=== PATIENT | male | born 1945 | race Caucasian/White ===

== ENCOUNTER → 2016-12-05 | Outpatient (CLI) | payer MEDICARE, OTHER ==
[~2016-12-05] MED LIST: ACIPHEX20 MG PO; ALLOPURINOL300 MG PO; BACLOFEN10 MG PO; BENAZEPRIL; BENAZEPRIL PO; CENTRUM SILVER1 TA1 PO; COLCHICINE0.6 MG PO; COUMADIN 6MG6 MG/TAB PO; COUMADIN PO; CRESTOR5 MG PO; CYMBALTA 20MG20 MG PO; DILAUDID 2MG TAB2 MG PO; FLEXERIL; FLEXERIL 1010 MG/TAB PO; GINSENG PO; HYDROCODONE/APAP; INDOMETHACIN25 MG PO; LYRICA150 MG PO; LYRICA75 MG PO; MAG-OX 400400 MG/TAB PO; METHOCARBAMOL750 MG PO; MIDRIN; NAPROXEN EC500 MG PO; NEURONTIN300 MG PO; NEXIUM40 MG PO; NORCO 325 MG-101 TAB; PERCOCET 325 MG1 TA2 PO; PERCR 7.5; ROBAXIN 75750 MG/TAB PO; TERAZOSIN5 MG PO; TRAMADOL50 MG PO; ULTRAM50 MG PO; VALIUM 5MG T5 MG/TAB PO; VITAMIN D3400 IU PO; ZOCOR 20MG20 MG PO; [UNRECOGNIZED DRUG - OTHER]
== END ==
LOC: COL.RAD 08:10
DX: I67.82 Cerebral ischemia (principal); G31.9 Degenerative disease of nervous system, unspecified; R43.2 Parageusia; R63.4 Abnormal weight loss
CPT/HCPCS: Q9967

== ENCOUNTER → 2018-07-27 | Outpatient (CLI) | payer MEDICARE, OTHER | LOC: COL.RAD 09:26 | DX: Z01.818 Encounter for other preprocedural examination (principal); M54.32 Sciatica, left side; M48.07 Spinal stenosis, lumbosacral region; Z98.1 Arthrodesis status ==

== ENCOUNTER 2018-09-21 09:14 | Emergency (ER) | payer MEDICARE, OTHER ==
[~2018-09-21] VITALS: Ht 167.6 cm; Wt 69.1 kg
[~2018-09-21 09:14] MED LIST changes: -BENAZEPRIL PO; +COUMADIN 1MG1 MG/TAB PO; -COUMADIN PO; +HYTRIN 5MG C5 MG/CAP PO; +LOTENSIN20 MG PO; -TERAZOSIN5 MG PO; -VITAMIN D3400 IU PO; +VITAMIND3 5000 PO; +ZYLOPRIM 300MG300 MG PO
[2018-09-21 09:17] VITALS: TEMP 98.9
[2018-09-21 09:48] LABS: INR 1.7 (0.8-3.0); PROTHROMBIN TIME 19.2 SECONDS (9.7-12.8)
[2018-09-21 09:49] LABS: BASO % 0.3 % (0.0-2.0); EOS # 0.1 (0.0-0.7); EOS % 0.9 % (0-4.0); GRAN # 5.7 (1.4-6.5); GRAN % 75.1 % (42.2-75.2); HEMATOCRIT 39.2 % (42.0-52.0); HEMOGLOBIN 12.5 g/dl (13.5-18.0); LYMPH # 1.4 (1.2-3.4); LYMPH % 18.7 % (20.0-51.0); MEAN CELL VOLUME 97 fl (80.0-100.0); MEAN CORPUSCULAR HEMOGLOBIN 31 pg (27.0-31.0); MEAN CORPUSCULAR HGB CONC 32 g/dl (33.0-37.0); MEAN PLATELET VOLUME 10.7 fl (7.4-10.4); MONO # 0.3 (0.1-0.6); MONO % 4.3 % (1.7-9.3); PLATELET COUNT 196 K/mm3 (130-400); RED BLOOD COUNT 4.04 M/mm3 (4.20-5.60); REDCELL DISTRIBUTION WIDTH-CV 14.2 % (11.5-14.5)
[2018-09-21 09:50] LABS: PARTIAL THROMBOPLASTIN TIME 35.2 SECONDS (26.0-37.0)
[2018-09-21] MEDS ORDERED: MEN'S MULTIVIT1 EAC1 PO (09:50)
[2018-09-21] MEDS ORDERED: ZANAFLEX CAPSULE4 MG PO (09:53)
[2018-09-21] MEDS ORDERED: VOLTAREN GEL 1%1 TU TP (09:54)
[2018-09-21] MEDS ORDERED: ZOCOR 20MG20 MG PO (09:54)
[2018-09-21] MEDS ORDERED: TYLENOL 8 HR PO (09:55)
[2018-09-21 09:58] LABS: ALANINE AMINOTRANSFERASE < 6 U/L (21-72); ALBUMIN 4.2 gm/dL (3.5-5.0); ALKALINE PHOSPHATASE 83 U/L (50-136); ANION GAP 10 mmol/L (7-16); AST,SGOT 26 U/L (15-37); BILIRUBIN,TOTAL 0.4 mg/dL (0.0-1.0); BLOOD UREA NITROGEN 46 mg/dL (9-20); C-REACTIVE PROTEIN 2.3 mg/dL (0.0-0.9); CALCIUM 10.2 mg/dL (8.4-10.2); CARBON DIOXIDE 21 mmol/L (22-30); CHLORIDE 111 mmol/L (98-107); CREATININE, serum 1.81 (0.66-1.25); GLUCOSE 140 mg/dL (74-106); LIPASE 61 U/L (23-300); SODIUM 141 mmol/L (137-145); TOTAL PROTEIN 7.8 gm/dL (6.4-8.2)
[2018-09-21 10:31] LABS: COLLECTION METHOD CLEAN CATCH
[2018-09-21 10:44] LABS: MUCOUS Present /lpf; PH 5 (5-8); SQUAMOUS EPITHELIAL 0-2 /hpf; URINE APPEARANCE Clear; URINE BACTERIA None Seen /hpf; URINE BILIRUBIN Negative (NEGATIVE); URINE BLOOD Negative (NEGATIVE); URINE COLOR Yellow; URINE GLUCOSE Negative (NEGATIVE); URINE KETONE Negative (NEGATIVE); URINE LEUKOCYTE ESTERASE 1+ (NEGATIVE); URINE NITRATE Negative (NEGATIVE); URINE PROTEIN(semi-quant) 2+ (NEGATIVE); URINE RBC 0-2 /hpf; URINE UROBILINOGEN Negative (NEGATIVE)
[2018-09-21] MEDS ORDERED: NORCO 325 MG-51 TAB PO (11:04)
[2018-09-21 11:19] VITALS: BP 154/83; PULSE 79
== END 2018-09-21 11:21 | disposition home or self-care (01) ==
LOC: COL.ER 09:14
PROVIDERS: Emergency Medicine
DX: K40.90 Unilateral inguinal hernia, without obstruction or gangrene, not specified as recurrent (principal); I10 Essential (primary) hypertension; Z79.01 Long term (current) use of anticoagulants; Z87.442 Personal history of urinary calculi
CPT/HCPCS: J1170; J7030

== ENCOUNTER 2018-10-06 10:22 | Day surgery (SDC) | payer MEDICARE, OTHER ==
[~2018-10-06] VITALS: Ht 167.6 cm; Wt 68.2 kg
[~2018-10-06 10:22] MED LIST changes: +MEN'S MULTIVIT1 EAC1 PO; +NORCO 325 MG-51 TAB PO; +TYLENOL 8 HR PO; +VOLTAREN GEL 1%1 TU TP; +ZANAFLEX CAPSULE4 MG PO
[2018-10-06 10:40] VITALS: BP 138/85; PULSE 84; TEMP 98.1
[2018-10-06 11:15] LABS: PROTHROMBIN TIME 10.8 SECONDS (9.7-12.8)
[2018-10-06 11:20] LABS: CALCIUM 10.3 mg/dL (8.4-10.2); CREATININE, serum 1.63 (0.66-1.25); POTASSIUM 4.7 mmol/L (3.4-5.0)
[2018-10-06 15:40] VITALS: BP 125/66; PULSE 83; TEMP 97.3
--- NOTE | 2018-10-06 15:40 | NUR ---
Patient returned back to [facility]. Alert and oriented. Vital signs obtained, WNL. States his pain is 3/10 to lower abdomen. States he is not ready to eat or drink but would like water and crackers in the room for when hes ready. Denies any nausea at this time. 4 incisions to abdomen, gonzalez set intact. Call wu within reach, Jasmina at bedside. Will continue to monitor.
[2018-10-06 15:55] VITALS: BP 132/69; PULSE 76
--- NOTE | 2018-10-06 15:55 | NUR ---
Patient states he is feeling well. Vital signs stable. Pain has decreased to 2/10 to lower abdomen. States he would like a jello. Tolerating food and drink well. Will continue to monitor.
[2018-10-06 16:10] VITALS: BP 150/75; PULSE 87
--- NOTE | 2018-10-06 16:10 | NUR ---
Patient states he is feeling well and would like more jello. Vital signs stable. Will continue to monitor.
[2018-10-06 16:25] VITALS: BP 133/73; PULSE 82
--- NOTE | 2018-10-06 16:25 | NUR ---
Vital signs stable. Patient states that he is feeling well. Tolerating food and drink well. Will continue to monitor.
[2018-10-06 16:55] VITALS: BP 130/63; PULSE 78
--- NOTE | 2018-10-06 16:55 | NUR ---
Patient states he is feeling well to go home. Ambulated to bathroom, steady. Spontaneous void obtained. Will continue to monitor.
--- NOTE | 2018-10-06 17:10 | NUR ---
Patient discharge instructions reviewed with patient and . Verbalized understanding. Reviewed importance of resuming coumadin not for another 48 hours. Pain medication script handed, as well as follow up appointment card. IV removed per orders. Patient to get dressed at this time.
--- NOTE | 2018-10-06 17:35 | NUR ---
Patient brought down to lobby via wheel chair. To be driven home by son.
== END 2018-10-06 17:35 | disposition home or self-care (01) ==
LOC: SDCO 10:22
PROVIDERS: Registered Nurse
DX: K40.90 Unilateral inguinal hernia, without obstruction or gangrene, not specified as recurrent (principal); K42.9 Umbilical hernia without obstruction or gangrene; E78.00 Pure hypercholesterolemia, unspecified; G47.33 Obstructive sleep apnea (adult) (pediatric); K21.9 Gastro-esophageal reflux disease without esophagitis; M19.90 Unspecified osteoarthritis, unspecified site; F41.9 Anxiety disorder, unspecified; I12.9 Hypertensive chronic kidney disease with stage 1 through stage 4 chronic kidney disease, or unspecified chronic kidney disease; N18.3 Chronic kidney disease, stage 3 (moderate); G89.29 Other chronic pain; M10.9 Gout, unspecified; Z79.01 Long term (current) use of anticoagulants; Z80.0 Family history of malignant neoplasm of digestive organs; Z82.3 Family history of stroke; Z79.82 Long term (current) use of aspirin; Z88.8 Allergy status to other drugs, medicaments and biological substances
CPT/HCPCS: C1781; J1100; J1170; J2405; J2704; J3010; J7030

== ENCOUNTER 2018-12-03 15:08 | Emergency (ER) | payer MEDICARE, OTHER ==
[~2018-12-03] VITALS: Ht 165.1 cm; Wt 68.2 kg
[2018-12-03 15:14] VITALS: BP 182/97; TEMP 98.8
[2018-12-03] MEDS ORDERED: LYRICA 75MG CAP75 MG PO (15:53)
[2018-12-03] MEDS ORDERED: MEDROL 4MG DOSPA4 MG PO (15:53)
[2018-12-03 16:30] VITALS: PULSE 70
== END 2018-12-03 16:30 | disposition home or self-care (01) ==
LOC: COL.ER 15:08
DX: M79.2 Neuralgia and neuritis, unspecified (principal); M54.5 Low back pain; G89.29 Other chronic pain; M10.9 Gout, unspecified; I10 Essential (primary) hypertension; E78.5 Hyperlipidemia, unspecified; Z79.01 Long term (current) use of anticoagulants; Z98.890 Other specified postprocedural states
CPT/HCPCS: J7512

== ENCOUNTER 2018-12-11 17:46 | Emergency (ER) | payer MEDICARE, OTHER ==
[~2018-12-11] VITALS: Ht 165.1 cm; Wt 68.2 kg
[~2018-12-11 17:46] MED LIST changes: +LYRICA 75MG CAP75 MG PO; +MEDROL 4MG DOSPA4 MG PO
[2018-12-11 17:47] VITALS: TEMP 98.2
[2018-12-11 18:45] LABS: COLLECTION METHOD CLEAN CATCH
[2018-12-11 18:56] LABS: HEMOGLOBIN 10.9 g/dl (13.5-18.0); MEAN CELL VOLUME 95 fl (80.0-100.0); MEAN CORPUSCULAR HEMOGLOBIN 32 pg (27.0-31.0); MEAN CORPUSCULAR HGB CONC 34 g/dl (33.0-37.0); PLATELET COUNT 173 K/mm3 (130-400); RED BLOOD COUNT 3.43 M/mm3 (4.20-5.60); REDCELL DISTRIBUTION WIDTH-CV 13.8 % (11.5-14.5)
[2018-12-11 18:57] LABS: MUCOUS Present /lpf; PH 5 (5-8); SQUAMOUS EPITHELIAL 0-2 /hpf; URINE APPEARANCE Hazy; URINE BACTERIA None Seen /hpf; URINE BILIRUBIN Negative (NEGATIVE); URINE BLOOD Negative (NEGATIVE); URINE COLOR Yellow; URINE GLUCOSE Negative (NEGATIVE); URINE KETONE Negative (NEGATIVE); URINE LEUKOCYTE ESTERASE 1+ (NEGATIVE); URINE NITRATE Negative (NEGATIVE); URINE PROTEIN(semi-quant) 2+ (NEGATIVE); URINE RBC 0-2 /hpf; URINE UROBILINOGEN Negative (NEGATIVE)
[2018-12-11 19:04] LABS: HEMATOCRIT 32.4 % (42.0-52.0)
[2018-12-11 19:12] LABS: ALANINE AMINOTRANSFERASE 18 U/L (21-72); ALBUMIN 4.1 gm/dL (3.5-5.0); ALKALINE PHOSPHATASE 78 U/L (50-136); ANION GAP 11 mmol/L (7-16); AST,SGOT 25 U/L (15-37); BILIRUBIN,TOTAL 0.6 mg/dL (0.0-1.0); BLOOD UREA NITROGEN 37 mg/dL (9-20); CARBON DIOXIDE 22 mmol/L (22-30); CHLORIDE 108 mmol/L (98-107); CREATININE, serum 1.33 (0.66-1.25); GLUCOSE 163 mg/dL (74-106); POTASSIUM 4.7 mmol/L (3.4-5.0); SODIUM 141 mmol/L (137-145)
[2018-12-11 19:35] LABS: C-REACTIVE PROTEIN < 0.5 mg/dL (0.0-0.9)
[2018-12-11 19:47] LABS: INR 2.9 (0.8-3.0); PROTHROMBIN TIME 35.1 SECONDS (9.7-12.8)
[2018-12-11 19:56] LABS: LYMPHOCYTE 5 % (20.0-51.0); NEUTROPHILS 93 % (42.0-75.2)
[2018-12-11 19:57] LABS: PLATELET ESTIMATE NORMAL (NORMAL)
[2018-12-11 22:58] VITALS: BP 175/97; PULSE 75
== END 2018-12-11 23:00 | disposition short-term general hospital (02) ==
LOC: COL.ER 17:46
PROVIDERS: Emergency Medicine
DX: L76.32 Postprocedural hematoma of skin and subcutaneous tissue following other procedure (principal); E78.00 Pure hypercholesterolemia, unspecified; Z79.01 Long term (current) use of anticoagulants
CPT/HCPCS: J2060; J3010; J7030; Q9967

== ENCOUNTER → 2018-12-16 | Outpatient (CLI) | payer MEDICARE, OTHER ==
[2018-12-16 08:56] LABS: BASO % 0.1 % (0.0-2.0); EOS % 0.3 % (0-4.0); GRAN # 8.1 (1.4-6.5); GRAN % 83.2 % (42.2-75.2); LYMPH % 9.7 % (20.0-51.0); MEAN CELL VOLUME 98 fl (80.0-100.0); MEAN CORPUSCULAR HGB CONC 32 g/dl (33.0-37.0); MEAN PLATELET VOLUME 10.9 fl (7.4-10.4); MONO # 0.6 (0.1-0.6); MONO % 5.9 % (1.7-9.3); PLATELET COUNT 158 K/mm3 (130-400); RED BLOOD COUNT 2.65 M/mm3 (4.20-5.60); REDCELL DISTRIBUTION WIDTH-CV 15.8 % (11.5-14.5)
[2018-12-16 09:00] LABS: HEMOGLOBIN 8.2 g/dl (13.5-18.0); MEAN CORPUSCULAR HEMOGLOBIN 31 pg (27.0-31.0)
== END ==
LOC: COL.LAB 08:17
DX: D62 Acute posthemorrhagic anemia (principal)

== ENCOUNTER → 2019-05-05 | Outpatient (CLI) | payer MEDICARE, OTHER ==
[2019-05-05 10:41] LABS: BASO % 0.4 % (0.0-2.0); EOS # 0.1 (0.0-0.7); EOS % 1.2 % (0-4.0); GRAN # 3.5 (1.4-6.5); GRAN % 69.1 % (42.2-75.2); HEMOGLOBIN 11.7 g/dl (13.5-18.0); LYMPH # 1.1 (1.2-3.4); LYMPH % 21.8 % (20.0-51.0); MEAN CELL VOLUME 97 fl (80.0-100.0); MEAN CORPUSCULAR HEMOGLOBIN 31 pg (27.0-31.0); MEAN CORPUSCULAR HGB CONC 32 g/dl (33.0-37.0); MEAN PLATELET VOLUME 11.2 fl (7.4-10.4); MONO # 0.4 (0.1-0.6); MONO % 7.1 % (1.7-9.3); PLATELET COUNT 163 K/mm3 (130-400); REDCELL DISTRIBUTION WIDTH-CV 13.7 % (11.5-14.5)
== END ==
LOC: COL.LAB 10:04
PROVIDERS: Family Medicine
DX: D64.9 Anemia, unspecified (principal)

== ENCOUNTER → 2020-12-11 | Outpatient (CLI) | payer MEDICARE, OTHER | LOC: COL.LAB 08:19 | DX: R35.1 Nocturia (principal) ==

== ENCOUNTER 2021-12-11 21:53 | Inpatient (IN) | payer MEDICARE, OTHER ==
[~2021-12-11] VITALS: Ht 167.6 cm; Wt 63.9 kg
[2021-12-11 22:35] LABS: MEAN CELL VOLUME 98 fl (80.0-100.0); MEAN CORPUSCULAR HGB CONC 32 g/dl (33.0-37.0); MEAN PLATELET VOLUME 10.9 fl (7.4-10.4); PLATELET COUNT 165 K/mm3 (130-400); RED BLOOD COUNT 2.75 M/mm3 (4.20-5.60); REDCELL DISTRIBUTION WIDTH-CV 13.7 % (11.5-14.5)
[2021-12-11 22:37] LABS: HEMATOCRIT 26.9 % (42.0-52.0); HEMOGLOBIN 8.5 g/dl (13.5-18.0); MEAN CORPUSCULAR HEMOGLOBIN 31 pg (27-31)
[2021-12-11 22:58] LABS: ALBUMIN 3.9 gm/dL (3.4-4.8); BILIRUBIN,TOTAL 0.2 mg/dL (0.2-1.2); CALCIUM 9.6 mg/dL (8.4-10.2); CREATININE, serum 3.07 mg/dL (0.72-1.25); TOTAL PROTEIN 6.9 gm/dL (6.2-8.1)
[2021-12-11 23:00] LABS: POTASSIUM 6.3 mmol/L (3.5-4.5)
[2021-12-11 23:05] LABS: BAND 5 % (0-10); HYPOCHROMIA 1+; LYMPHOCYTE 4 % (20.0-51.0); NEUTROPHILS 87 % (42.0-75.2); PLATELET ESTIMATE NORMAL (NORMAL)
[2021-12-11 23:06] LABS: SCHISTOCYTES 1+
[2021-12-11 23:36] LABS: INR 2.5 (0.8-3.0); PROTHROMBIN TIME 28.6 SECONDS (9.7-12.8)
[2021-12-11 23:39] LABS: PARTIAL THROMBOPLASTIN TIME 39.3 SECONDS (26.0-37.0)
[2021-12-12] VITALS (11 sets, daily range): BP systolic 134–173; BP diastolic 63–85; PULSE 73–92; TEMP 98.7–99.2
[2021-12-12 00:32] LABS: COLLECTION METHOD CLEAN CATCH
[2021-12-12 00:38] LABS: MUCOUS Present (NOT PRESENT); PH 5 (5-8); SQUAMOUS EPITHELIAL 0-2 /hpf (0-10); URINE APPEARANCE Hazy (CLEAR/HAZY); URINE BACTERIA None Seen /hpf (NONE SEEN); URINE BLOOD 2+ (NEGATIVE); URINE COLOR Yellow (YELLOW); URINE GLUCOSE 1+ (NEGATIVE); URINE KETONE Negative (NEGATIVE); URINE NITRATE Negative (NEGATIVE); URINE PROTEIN(semi-quant) 2+ (NEGATIVE); URINE RBC 20-50 /hpf (0-2); URINE UROBILINOGEN Negative (NEGATIVE)
[2021-12-12 03:26] LABS: BASO % 0.1 % (0.0-2.0); GRAN # 6.1 K/mm3 (1.4-6.5); GRAN % 88.6 % (42.2-75.2); LYMPH # 0.4 K/mm3 (1.2-3.4); LYMPH % 5.7 % (20.0-51.0); MEAN CELL VOLUME 99 fl (80.0-100.0); MEAN CORPUSCULAR HGB CONC 31 g/dl (33.0-37.0); MEAN PLATELET VOLUME 9.8 fl (7.4-10.4); MONO # 0.4 K/mm3 (0.1-0.6); MONO % 5.5 % (1.7-9.3); PLATELET COUNT 139 K/mm3 (130-400); RED BLOOD COUNT 2.47 M/mm3 (4.20-5.60); REDCELL DISTRIBUTION WIDTH-CV 13.8 % (11.5-14.5)
[2021-12-12 03:27] LABS: HEMATOCRIT 24.5 % (42.0-52.0); HEMOGLOBIN 7.6 g/dl (13.5-18.0); MEAN CORPUSCULAR HEMOGLOBIN 31 pg (27-31)
--- NOTE | 2021-12-12 03:34 | NUR ---
Pt to room at approximately 0300. Pt oriented to room and admission assessment completed without difficulty. Pt is A&Ox3 and plesant. Pt has fluids running in L AC IV and is resting quietly in bed. Call light within reach, will continue to monitor.
[2021-12-12 03:43] LABS: CALCIUM 9.3 mg/dL (8.4-10.2); MAGNESIUM 1.7 mg/dL (1.6-2.6); POTASSIUM 5.2 mmol/L (3.5-4.5)
[2021-12-12 03:48] LABS: CREATININE, serum 3.23 mg/dL (0.72-1.25)
--- NOTE | 2021-12-12 09:14 | NUR ---
Pain Management Specialist met with patient to discuss discharge planning. Patient lives in [place] with his , Jasmina and sees Mechelle Mcdowell APRN in [place] for primary care as he used to live there for many years. Patient uses [facility] for most of his medications, but if he needs a quick prescription he uses [facility]. Patient does not use any DME and is independent with [facility]. Patient does not have DPOA-HC and is not interested in completing the form at this time. Patient plans to return home at time of discharge. Patient's children, Iraj (ph#[phone]) and Rosy (ph#[phone]) are listed as contacts. Discharge Plan: Home
[2021-12-12 10:44] LABS: INR 2.9 (0.8-3.0); PROTHROMBIN TIME 33.1 SECONDS (9.7-12.8)
--- NOTE | 2021-12-12 11:33 | NUR ---
Kiara: [facility] Situation: Building Carpenter Helper stopped by room on rounds Background: PT was resting Assessment: Pt appreciated the visit Recommendation: Building Carpenter Helper will follow up as needed
--- NOTE | 2021-12-12 13:45 | NUR ---
PT TAKEN TO SURGERY @ THIS TIME, IVF INFUSING. PT'S WALLET IS PLACED IN THE SAFE BY SLOT OPERATIONS DIRECTOR ACE.
--- NOTE | 2021-12-12 17:06 | NUR ---
PT TRANSFERRED TO ROOM 346 FROM [facility] @ THIS TIME R/T BATHROOM NOT FUNCTIONING PROPERLY. PT ARRIVED BACK FROM SURGERY @ 1548, HAS BEEN A&O X3, URINATED X2. URINE IS DARK RED, CLOTS SEEN WHEN STRAINED. PT HAS TO SIT ON TOILET TO URINATE, INSTRUCTED TO USE URINAL FOR MEASUREMENTS, VERBALIZES UNDERSTANDING BUT DOES MISS URINAL X1 ET VOIDS INTO TOILET. PT ASSISTED TO BR ET BACK TO BED WITH 1 ASSIST, IS UNSTEADY ET SHAKY. IVF INFUSING. BED ALARM IS ON FOR SAFETY, CALL LIGHT WITHIN REACH.
--- NOTE | 2021-12-12 19:13 | NUR ---
PT HAS CONTINUED TO HAVE HEMATURIA WITH CLOTS, VOIDS 200-300 ML @ A TIME. BLOOD PRESSURES HAVE BECOME ELEVATED. DR. LAURA CALLED ET UPDATED ON PT STATUS, NO NEW ORDERS @ THIS TIME. REPORT GIVEN TO REBEKA BERG.
--- NOTE | 2021-12-12 20:50 | NUR ---
Pt. sitting up in bed. Pt. is A&OX3, assessment complete. IV to lt. ac patent, IV fluids infusing per orders. Pt. assisted to the bathroom with standby assist. Urine is still bloody. Will monitor. Pt. denies pain or other needs. Call light within reach.
[2021-12-13 00:51] VITALS: BP 145/67; PULSE 85; TEMP 99.5
[2021-12-13 03:28] VITALS: BP 139/69; PULSE 84; TEMP 98
--- NOTE | 2021-12-13 04:52 | NUR ---
Dr. Duran notified of Pt's urine out put and retention. Pt. bladder scanned and retained 250 mls after urinating. Pt. denies pain or feelings of difficulty with urination.
[2021-12-13 07:21] VITALS: BP 151/79; PULSE 79; TEMP 99.1
[2021-12-13 08:50] LABS: MEAN CELL VOLUME 103 fl (80.0-100.0); MEAN CORPUSCULAR HGB CONC 30 g/dl (33.0-37.0); MEAN PLATELET VOLUME 10.8 fl (7.4-10.4); PLATELET COUNT 161 K/mm3 (130-400); RED BLOOD COUNT 2.68 M/mm3 (4.20-5.60); REDCELL DISTRIBUTION WIDTH-CV 14.4 % (11.5-14.5)
[2021-12-13 08:58] LABS: HEMATOCRIT 27.5 % (42.0-52.0); HEMOGLOBIN 8.1 g/dl (13.5-18.0); MEAN CORPUSCULAR HEMOGLOBIN 30 pg (27-31)
[2021-12-13 09:06] LABS: CALCIUM 9.1 mg/dL (8.4-10.2); CREATININE, serum 3.03 mg/dL (0.72-1.25); POTASSIUM 5.4 mmol/L (3.5-4.5)
[2021-12-13 11:19] VITALS: BP 175/85; TEMP 99.1
[2021-12-13 11:39] LABS: BAND 1 % (0-10); LYMPHOCYTE 7 % (20.0-51.0); NEUTROPHILS 90 % (42.0-75.2); OVALOCYTES 2+
[2021-12-13 11:40] LABS: PLATELET ESTIMATE NORMAL (NORMAL); SCHISTOCYTES 1+
--- NOTE | 2021-12-13 14:17 | NUR ---
Kiara: [facility] Situation: Welt Stitcher went to room on rounds Background: PT was resting and content Assessment: No needs at this time and PT appreciated the visit Recommendation: Welt Stitcher will follow up at this time
[2021-12-13 16:00] VITALS: BP 163/79; PULSE 101; TEMP 99.1
--- NOTE | 2021-12-13 19:16 | NUR ---
RECEIVED CHANGE OF SHIFT REPORT FROM DAY SHIFT RN.
[2021-12-13 19:54] VITALS: BP 171/82; PULSE 93; TEMP 99.9
[2021-12-14] VITALS (7 sets, daily range): BP systolic 149–178; BP diastolic 72–91; PULSE 83–101; TEMP 97.7–98.9
--- NOTE | 2021-12-14 01:10 | NUR ---
PATIENT REPORTS THAT BOTH HANDS FEEL TIGHT WITH SWELLING IN THE JOINTS, OBSERVED PSYCHOSOCIAL REHABILITATION COUNSELOR <3, SKIN WARM, MARYJO RADIAL PULSES +2, DENIES INCREASED NUMBNESS/TINGLING TO MARYJO HANDS AT THIS TIME.
--- NOTE | 2021-12-14 01:13 | NUR ---
OBSERVED URINE RED TINGED WITH X2 SMALL CLOTS AT BOTTOM OF URINAL. PATIENT REPORTS HE FEELS LIKE HE IS EMPTYING HIS BLADDER WITH NO PROBLEMS CURRENTLY.
[2021-12-14 06:42] LABS: BASO % 0.1 % (0.0-2.0); GRAN # 9.9 K/mm3 (1.4-6.5); GRAN % 88.5 % (42.2-75.2); LYMPH # 0.5 K/mm3 (1.2-3.4); LYMPH % 4.5 % (20.0-51.0); MEAN CELL VOLUME 101 fl (80.0-100.0); MEAN CORPUSCULAR HGB CONC 30 g/dl (33.0-37.0); MEAN PLATELET VOLUME 11.1 fl (7.4-10.4); MONO # 0.7 K/mm3 (0.1-0.6); MONO % 6.5 % (1.7-9.3); PLATELET COUNT 167 K/mm3 (130-400); RED BLOOD COUNT 2.61 M/mm3 (4.20-5.60); REDCELL DISTRIBUTION WIDTH-CV 14.5 % (11.5-14.5)
[2021-12-14 06:45] LABS: HEMATOCRIT 26.3 % (42.0-52.0); MEAN CORPUSCULAR HEMOGLOBIN 31 pg (27-31)
[2021-12-14 06:51] LABS: CALCIUM 8.9 mg/dL (8.4-10.2); CREATININE, serum 2.8 mg/dL (0.72-1.25); POTASSIUM 4.2 mmol/L (3.5-4.5)
--- NOTE | 2021-12-14 07:23 | NUR ---
CHANGE OF SHIFT REPORT GIVEN TO DAY SHIFT RNs, DAPHNIE.
--- NOTE | 2021-12-14 08:00 | NUR ---
PATIENT IS A&O AND SITTING UP IN BED. NOTED ELEVATED B/P IN THE 170'S SYSTOLIC, PATIENT C/O PAIN AND REQUESTING PAIN MEDS. GAVE PRN IV MORPHINE PER ORDERS WELL PRN IV ZOFRAN TO PREVENT NAUSEA WITH NARCOTIC. ALL OTHER VSS ON TELE. NG INPLACE AND TO LIS WITH APPROX 150CC OF DARK GREEN DRAINAGE NOTED IN NG CANISTER. ABD IS DISTENDED, SOFT AND WITH POSITIVE BOWL SOUNDS. PATIENT REPORTS PASSING SOME FLATUS, NO BM YET. NPO. IV FLUIDS INFUSING VIA PUMP INTO LEFT AC IV. VOIDING SUFFICIENT AMOUNTS, URINE IS RED WITH OCCATIONAL SMALL TISSUE CLOTS FROM RECENT PROCEDURE WITH RENAL STENT. HEAD TO TOE ASSESSMENT COMPLETE. PT/OT CONSULTED. SCD'S CURRENTLY OFF. NO OTHER NEEDS AT THIS TIME. CALL LIGHT IN REACH.
--- NOTE | 2021-12-14 08:05 | NUR ---
HOSPITALIST NOTIFIED AND ASSESSED DURING ROUNDS OF RIGHT EYE REDDNESS/BLOODSHOT, NO NEW ORDERS.
--- NOTE | 2021-12-14 09:15 | NUR ---
CLAMPED NG PER VERBAL ORDERS BY HOSPITALIST. WILL ATTEMPT TO CLAMP NG FOR A FEW HOURS AND SEE HOW PATIENT TOLERATES IT. SURGEON ALSO FOLLOWING CASE. PATIENT DOING WELL SO FAR. NO C/O N/V. IS PASSING SMALL AMOUNTS OF FLATUS. NO BM YET. WILL MONITOR.
--- NOTE | 2021-12-14 10:10 | NUR ---
DR.SAVILLE LOAIZA, SEE ORDERS/NOTES.
--- NOTE | 2021-12-14 13:57 | NUR ---
PT REPORTS HAVING A 9/10 PN AFTER GETTING UP AND AMBULATING TO THE BATHROOM. REQUESTS PN PILL. NO OTHER NEEDS AT THIS TIME. CALL LIGHT WITHIN REACH.
--- NOTE | 2021-12-14 17:15 | NUR ---
PATIENT HAS TOLERATED HAVING HIS NG CLAMPED WITH NO C/O N/V. PATIENT DIET ADVANCED TO CLEARS AND HE HAS ALSO TOLERATED CLEARS WITH NO C/O N/V. AT BEDSIDE AND GAVE VERBAL ORDER TO REMOVE NG. NG REMOVED, TIP INTACT AND PATIENT TOLERATED WELL.
--- NOTE | 2021-12-14 20:51 | NUR ---
PT REPORTS MILD NAUSEA, NO EMESIS. MEDICATED WITH ZOFRAN 4MG IVP AT THIS TIME. IVF TO LAC INFUSING WITHOUT PROBLEM. PT ALERT AND ORIENTED. URINE BLOOD TINGED. PASSING GAS. TAKING CLEAR LIQUIDS.
--- NOTE | 2021-12-14 20:52 | NUR ---
PT REPORTS MILD NAUSEA, DOESN'T FEEL LIKE HE IS GOING TO VOMIT. MEDICATED WITH ZOFRAN 4MG IVP AT THIS TIME. IVF TO LEFT AC INFUSING WITHOUT PROBLEM.
--- NOTE | 2021-12-15 01:00 | NUR ---
PT REPORTS PAIN 3/10 TO ABD. NO EMESIS, PREVIOUSLY HAD ZOFRAN. MEDICATED WITH MORPHINE 2MG IVP AT THIS TIME. IVF TO LEFT AC INFUSING WITHOUT PROBLEM. PASSING GAS, NO BM. URINE REMAINS BLOOD TINGED.
[2021-12-15 03:44] VITALS: BP 160/87; PULSE 90; TEMP 97.6
[2021-12-15 05:58] LABS: BASO % 0.2 % (0.0-2.0); EOS % 0.5 % (0.0-4.0); GRAN # 6.6 K/mm3 (1.4-6.5); GRAN % 78.2 % (42.2-75.2); LYMPH # 1.1 K/mm3 (1.2-3.4); LYMPH % 12.5 % (20.0-51.0); MEAN CELL VOLUME 101 fl (80.0-100.0); MEAN CORPUSCULAR HGB CONC 31 g/dl (33.0-37.0); MEAN PLATELET VOLUME 10.6 fl (7.4-10.4); MONO # 0.7 K/mm3 (0.1-0.6); MONO % 8.2 % (1.7-9.3); PLATELET COUNT 159 K/mm3 (130-400); RED BLOOD COUNT 2.53 M/mm3 (4.20-5.60); REDCELL DISTRIBUTION WIDTH-CV 14.3 % (11.5-14.5)
--- NOTE | 2021-12-15 06:00 | NUR ---
UP SEVERAL TIMES TO VOID, NO BMS THIS SHIFT.
[2021-12-15 06:02] LABS: HEMATOCRIT 25.5 % (42.0-52.0); HEMOGLOBIN 7.8 g/dl (13.5-18.0); MEAN CORPUSCULAR HEMOGLOBIN 31 pg (27-31)
[2021-12-15 06:06] LABS: INR 3.4 (0.8-3.0); PROTHROMBIN TIME 40.1 SECONDS (9.7-12.8)
[2021-12-15 06:16] LABS: CALCIUM 8.6 mg/dL (8.4-10.2); CREATININE, serum 2.43 mg/dL (0.72-1.25); MAGNESIUM 1.4 mg/dL (1.6-2.6); POTASSIUM 3.8 mmol/L (3.5-4.5)
[2021-12-15 07:52] VITALS: BP 174/90; PULSE 101; TEMP 98.6
--- NOTE | 2021-12-15 12:25 | NUR ---
PATIENT'S SON AT BEDSIDE REPORTING THE PATIENT WOULD LIKE HIS WALLET OUT OF THE SAFE. HAIRSPRING STAKER NOTIFIED. WALLET RETURNED TO PATIENT.
[2021-12-15 16:00] VITALS: BP 158/74; PULSE 75; TEMP 98.4
[2021-12-15 20:26] VITALS: BP 165/92; PULSE 74; TEMP 98.5
--- NOTE | 2021-12-15 21:00 | NUR ---
PT REPORTS MINIMAL ABD DISCOMFORT AND TOLERATED LOW FIBER DIET WITHOUT N/V. HAS IVF INFUSING TO LAC WITHOUT PROBLEM. HAS BEEN UP TO BATHROOM ON OWN WITH STEADY GAIT. HS MEDS RESTARTED.
[2021-12-15 23:30] VITALS: BP 149/68; PULSE 95; TEMP 98.3
[2021-12-16 04:09] VITALS: BP 146/68; PULSE 85; TEMP 97.8
[2021-12-16 07:12] LABS: BASO % 0.2 % (0.0-2.0); EOS # 0.1 K/mm3 (0.0-0.7); EOS % 2.3 % (0.0-4.0); GRAN # 3.9 K/mm3 (1.4-6.5); GRAN % 73.8 % (42.2-75.2); LYMPH # 0.8 K/mm3 (1.2-3.4); LYMPH % 14.5 % (20.0-51.0); MEAN CELL VOLUME 98 fl (80.0-100.0); MEAN CORPUSCULAR HGB CONC 31 g/dl (33.0-37.0); MEAN PLATELET VOLUME 11.4 fl (7.4-10.4); MONO # 0.5 K/mm3 (0.1-0.6); PLATELET COUNT 156 K/mm3 (130-400); RED BLOOD COUNT 2.41 M/mm3 (4.20-5.60); REDCELL DISTRIBUTION WIDTH-CV 13.9 % (11.5-14.5)
[2021-12-16 07:17] LABS: HEMATOCRIT 23.6 % (42.0-52.0); HEMOGLOBIN 7.4 g/dl (13.5-18.0); MEAN CORPUSCULAR HEMOGLOBIN 31 pg (27-31)
[2021-12-16 07:30] LABS: CALCIUM 8.3 mg/dL (8.4-10.2); CREATININE, serum 1.82 mg/dL (0.72-1.25); POTASSIUM 3.6 mmol/L (3.5-4.5)
[2021-12-16 07:57] VITALS: BP 138/75; PULSE 76; TEMP 98.4
--- NOTE | 2021-12-16 08:00 | NUR ---
PATIENT IS ORIENTED BUT SLEEPY THIS AM. HE REPORTS HE SLEPT OKAY BUT WAS "JUST STILL A LITTLE TIRED". VSS ON TELE. NO C/O N/V OR PAIN. ABD IS ROUND, SOFT AND WITH POSITIVE BOWL SOUNDS. PATIENT REPORTS HE IS PASSING GAS AND HAD LOOSE BM. TOLERATING LOW FIBER DIET. AM MEDS GIVEN. HEAD TO TOE ASSESSMENT COMPLETE. PATIENT STILL HAVING GROSS HEMATURIA BUT IS VOIDING SUFFICIENT AMOUNTS. IV FLUIDS INFUSING VIA PUMP INTO LEFT AC. PATIENT'S REDDNESS IN RIGHT EYE IMPROVING. PATIENT RESTING UP IN BED WITH CALL LIGHT IN REACH. NO OTHER NEEDS AT THIS TIME.
[2021-12-16 11:31] VITALS: BP 143/73; PULSE 88; TEMP 98.3
[2021-12-16 15:28] VITALS: BP 138/72; PULSE 78; TEMP 99
[2021-12-16 20:51] VITALS: BP 139/84; PULSE 76; TEMP 98.9
--- NOTE | 2021-12-16 21:30 | NUR ---
PT IN BED. IS INDEPENDENT IN ROOM. IVF HAVE BEEN CAPPED, INT TO LEFT AC FLUSHES WELL. PT DENIES PAIN. WEARING RT REGINA HOSE FOR HIS GOUT. TAKING LOW FIBER DIET WITHOUT N/V. HS MEDS GIVEN. REPORTS PASSING GAS AND HAVING SMALL BM.
[2021-12-16 23:41] VITALS: BP 145/61; PULSE 84; TEMP 98.8
[2021-12-17 04:21] VITALS: BP 141/76; PULSE 79; TEMP 98.8
--- NOTE | 2021-12-17 05:17 | NUR ---
NO NEEDS FOR PAIN OR NAUSEA MEDS THIS SHIFT. INDEPENDENT IN ROOM.
[2021-12-17 06:45] LABS: BASO % 0.4 % (0.0-2.0); EOS # 0.1 K/mm3 (0.0-0.7); EOS % 2.3 % (0.0-4.0); GRAN # 3.8 K/mm3 (1.4-6.5); GRAN % 72.2 % (42.2-75.2); LYMPH # 0.8 K/mm3 (1.2-3.4); LYMPH % 15.8 % (20.0-51.0); MEAN CELL VOLUME 97 fl (80.0-100.0); MEAN CORPUSCULAR HGB CONC 32 g/dl (33.0-37.0); MEAN PLATELET VOLUME 10.8 fl (7.4-10.4); MONO # 0.5 K/mm3 (0.1-0.6); MONO % 8.9 % (1.7-9.3); PLATELET COUNT 146 K/mm3 (130-400); RED BLOOD COUNT 2.27 M/mm3 (4.20-5.60); REDCELL DISTRIBUTION WIDTH-CV 13.4 % (11.5-14.5)
[2021-12-17 06:52] LABS: MEAN CORPUSCULAR HEMOGLOBIN 31 pg (27-31)
[2021-12-17 07:01] LABS: INR 1.4 (0.8-3.0); PROTHROMBIN TIME 16.1 SECONDS (9.7-12.8)
[2021-12-17 07:20] LABS: CALCIUM 8.3 mg/dL (8.4-10.2); CREATININE, serum 1.5 mg/dL (0.72-1.25); MAGNESIUM 1.7 mg/dL (1.6-2.6); POTASSIUM 3.1 mmol/L (3.5-4.5)
[2021-12-17 07:58] VITALS: BP 139/82; PULSE 72; TEMP 98.7
--- NOTE | 2021-12-17 08:30 | NUR ---
PT A&OX3 RESTING IN BED. ASSESSMENT COMPLETED AND MORNING MEDS GIVEN. PT DENIES PAIN. BOWEL SOUNDS PRESENT IN ALL QUADRANTS. LT AC INT PATENT WITH NO REDNESS. PT HOPING TO DISCHARGE HOME TODAY. NO OTHER NEEDS AT THIS TIME. CALL LIGHT WITHIN REACH.
--- NOTE | 2021-12-17 09:49 | NUR ---
PT is recommending home. SW met with the patient to follow up. The patient states that he is doing well. He confirms plan to return home with his upon discharge. No additional needs at this time. *Discharge plan: home with *
--- NOTE | 2021-12-17 12:00 | NUR ---
PT RESTING IN BED WITH NO NEEDS AT THIS TIME. CALL LIGHT WITHIN REACH.
[2021-12-17 12:04] VITALS: BP 132/49; PULSE 79; TEMP 98.6
[2021-12-17 15:19] VITALS: BP 130/66; PULSE 65; TEMP 98.6
--- NOTE | 2021-12-17 20:00 | NUR ---
Pt. sitting up in bed. Pt. is a&OX3, assessment complete. IV to rt. hand patent, IV fluids infusing per orders. Dressing to rt. knee CDI. Hemovac noted with minimal drainage at this time. Pt. reports pain to rt. knee at a 3 on pain scale. Pt. denies further needs, call light within reach.
--- NOTE | 2021-12-17 20:00 | NUR ---
Pt. sitting up in bed. Pt. is a&OX3, assessment complete. INT to lt. ac patent. pt. denies pain or other needs, call light within reach.
[2021-12-17 21:03] VITALS: BP 148/66; PULSE 73; TEMP 98.7
[2021-12-18] VITALS (11 sets, daily range): BP systolic 136–164; BP diastolic 60–84; PULSE 64–74; TEMP 98.2–99.1
[2021-12-18 07:02] LABS: MEAN CELL VOLUME 98 fl (80.0-100.0); MEAN CORPUSCULAR HGB CONC 32 g/dl (33.0-37.0); MEAN PLATELET VOLUME 11.4 fl (7.4-10.4); PLATELET COUNT 144 K/mm3 (130-400); REDCELL DISTRIBUTION WIDTH-CV 13.6 % (11.5-14.5)
[2021-12-18 07:11] LABS: HEMATOCRIT 21.6 % (42.0-52.0); HEMOGLOBIN 6.9 g/dl (13.5-18.0); MEAN CORPUSCULAR HEMOGLOBIN 31 pg (27-31)
[2021-12-18 07:20] LABS: ALBUMIN 2.5 gm/dL (3.4-4.8); BILIRUBIN,TOTAL 0.3 mg/dL (0.2-1.2); CALCIUM 8.2 mg/dL (8.4-10.2); CREATININE, serum 1.55 mg/dL (0.72-1.25); MAGNESIUM 1.8 mg/dL (1.6-2.6); POTASSIUM 3.7 mmol/L (3.5-4.5); TOTAL PROTEIN 4.9 gm/dL (6.2-8.1)
[2021-12-18 07:27] LABS: INR 1.2 (0.8-3.0); PROTHROMBIN TIME 13.5 SECONDS (9.7-12.8)
--- NOTE | 2021-12-18 08:15 | NUR ---
PT A&OX3 SITTING UP IN BED EATING BREAKFAST. AM MEDS GIVEN AND ASSESSMENT COMPLETED. VS STABLE AND TELE IN PLACE. PT DENIES PAIN. HGB LEVEL 6.9 THIS MORNING AND REPORTED TO . PT GOING TO RECIEVE 1 UNIT OF PRBC. PT REQUESTING A PCP CLOSER TO WHERE HE RESIDES. INT TO LT AC PATENT. NO OTHER COMPLAINTS AT THIS TIME. CALL LIGHT WITHIN REACH.
--- NOTE | 2021-12-18 09:35 | NUR ---
IN WITH PT. WILL REASSESS LABS AFTER TRANSFUSION AND PLAN TO DISCHARGE PT HOME THIS AFTERNOON.
--- NOTE | 2021-12-18 12:42 | NUR ---
BLOOD INFUSION STARTED PER ORDERS AND MONITORING PT
[2021-12-18] MEDS ORDERED: MAG-OX 400400 MG/TAB PO (13:33)
[2021-12-18] MEDS ORDERED: SODIUM BICARBO650 MG PO (13:33)
--- NOTE | 2021-12-18 14:23 | NUR ---
The patient is to discharge later today, after his blood transfusion. AISHA met with the patient and presented and read the IM form outloud to him. The patient verbalized understanding and of agreement to discharge today. He signed the form and SW provided him with a copy. AISHA discussed home health services. The patient declined home health and states that he is fine at this time. No additional needs at this time.
[2021-12-18 16:22] LABS: HEMOGLOBIN 7.7 g/dl (13.5-18.0)
--- NOTE | 2021-12-18 16:29 | NUR ---
CALLED POST TRANSFUSION H&H RESULT OF 7.7 TO . PATIENT CLEARED FOR DISCHARGE. SEE ORDERS.
--- NOTE | 2021-12-18 17:15 | NUR ---
PATIENT DISCHARGING HOME PER ORDERS. RN DC'D IV SITE AND COVERED WITH [employer]. DC'D TELE. GAVE DISCHARGE INSTRUCTIONS, E-SCRIPTS SENT, AND DISCUSSED F/U APT. ANSWERED QUESTIONS/CONCERNS. PATIENT IS DRESSED, PERSONAL BELONGINGS PACKED AND PATIENT ESCORTED OUT VIA AMBULATORY TO PERSONAL VEHICLE WITH SON.
== END 2021-12-18 17:15 | disposition home or self-care (01) | DRG 660 ==
LOC: COL.ER 21:53 → SURG 12-12 01:21
PROVIDERS: Emergency Medicine; Family Medicine; Internal Medicine; Physician Assistant; Student in an Organized Health Care Education/Training Program; Urology; ADMIT Internal Medicine
PROC: 0T778DZ Dilation of Left Ureter with Intraluminal Device, Via Natural or Artificial Opening Endoscopic (ICD-10-PCS; principal; 2021-12-12 14:15)
PROC: 0T578ZZ Destruction of Left Ureter, Via Natural or Artificial Opening Endoscopic (ICD-10-PCS; 2021-12-12 14:15)
PROC: BT1F1ZZ Fluoroscopy of Left Kidney, Ureter and Bladder using Low Osmolar Contrast (ICD-10-PCS; 2021-12-12 14:15)
DX: N13.6 Pyonephrosis (principal); D68.62 Lupus anticoagulant syndrome; E87.2 Acidosis; K56.0 Paralytic ileus; N17.9 Acute kidney failure, unspecified; S30.1XXA Contusion of abdominal wall, initial encounter; D64.9 Anemia, unspecified; E87.5 Hyperkalemia; I12.9 Hypertensive chronic kidney disease with stage 1 through stage 4 chronic kidney disease, or unspecified chronic kidney disease; K21.9 Gastro-esophageal reflux disease without esophagitis; G62.9 Polyneuropathy, unspecified; M19.071 Primary osteoarthritis, right ankle and foot; E78.5 Hyperlipidemia, unspecified; E83.42 Hypomagnesemia; M10.9 Gout, unspecified; M32.14 Glomerular disease in systemic lupus erythematosus; G47.33 Obstructive sleep apnea (adult) (pediatric); G89.29 Other chronic pain; M54.9 Dorsalgia, unspecified; F41.9 Anxiety disorder, unspecified; N18.30 Chronic kidney disease, stage 3 unspecified; Z79.01 Long term (current) use of anticoagulants; Z87.442 Personal history of urinary calculi; Z88.6 Allergy status to analgesic agent; Z88.8 Allergy status to other drugs, medicaments and biological substances
CPT/HCPCS: 99233-AI; 99239; C1769; C2617; G0378; J0360; J0610; J0690; J0696; J1815; J2060; J2250; J2270; J2405; J2704; J3010; J3475; J7030; J7512; P9016; Q9967

== ENCOUNTER → 2021-12-27 | Outpatient (CLI) | payer MEDICARE, OTHER ==
[~2021-12-27] MED LIST changes: +SODIUM BICARBO650 MG PO
[2021-12-27 09:07] LABS: ALBUMIN 3.2 gm/dL (3.4-4.8); CALCIUM 8.9 mg/dL (8.4-10.2); CREATININE, serum 1.83 mg/dL (0.72-1.25); POTASSIUM 4.5 mmol/L (3.5-4.5); URIC ACID 3.9 mg/dL (3.5-7.2)
== END ==
LOC: COL.LAB 08:08
PROVIDERS: Internal Medicine Nephrology
DX: I12.9 Hypertensive chronic kidney disease with stage 1 through stage 4 chronic kidney disease, or unspecified chronic kidney disease (principal); N17.9 Acute kidney failure, unspecified; M32.14 Glomerular disease in systemic lupus erythematosus; M1A.00X0 Idiopathic chronic gout, unspecified site, without tophus (tophi)

== ENCOUNTER → 2022-01-18 | Outpatient (CLI) | payer MEDICARE, OTHER ==
[2022-01-18 09:09] LABS: CALCIUM 9.8 mg/dL (8.4-10.2); CREATININE, serum 2.02 mg/dL (0.72-1.25); POTASSIUM 4.4 mmol/L (3.5-4.5)
== END ==
LOC: COL.LAB 08:28
PROVIDERS: Internal Medicine Nephrology
DX: N17.9 Acute kidney failure, unspecified (principal); I10 Essential (primary) hypertension

== ENCOUNTER → 2022-08-02 | Outpatient (CLI) | payer MEDICARE, OTHER ==
[2022-08-02 07:56] LABS: CALCIUM 9.1 mg/dL (8.4-10.2); CREATININE, serum 2.18 mg/dL (0.72-1.25); POTASSIUM 4.2 mmol/L (3.5-4.5)
== END ==
LOC: COL.LAB 07:22
PROVIDERS: Internal Medicine Nephrology
DX: N18.31 Chronic kidney disease, stage 3a (principal)

== ENCOUNTER → 2023-03-26 | Outpatient (CLI) | payer MEDICARE, OTHER ==
[2023-03-26 12:12] LABS: ALBUMIN 3.8 gm/dL (3.4-4.8); CALCIUM 9.2 mg/dL (8.4-10.2); CREATININE, serum 2.45 mg/dL (0.72-1.25); PHOSPHOROUS 3.7 mg/dL (2.3-4.7); POTASSIUM 5.2 mmol/L (3.5-4.5)
== END ==
LOC: COL.LAB 11:18
PROVIDERS: Internal Medicine Nephrology
DX: I12.9 Hypertensive chronic kidney disease with stage 1 through stage 4 chronic kidney disease, or unspecified chronic kidney disease (principal); N18.31 Chronic kidney disease, stage 3a

== ENCOUNTER → 2023-05-02 | Outpatient (CLI) | payer MEDICARE, OTHER ==
[2023-05-02 13:16] LABS: CALCIUM 9.4 mg/dL (8.4-10.2); CREATININE, serum 2.22 mg/dL (0.72-1.25); POTASSIUM 4.7 mmol/L (3.5-4.5)
== END ==
LOC: COL.LAB 12:18
PROVIDERS: Internal Medicine Nephrology
DX: N18.31 Chronic kidney disease, stage 3a (principal)

== ENCOUNTER → 2023-08-13 | Outpatient (CLI) | payer MEDICARE, OTHER ==
[2023-08-13 09:22] LABS: ALBUMIN 3.7 gm/dL (3.4-4.8); CALCIUM 9.2 mg/dL (8.4-10.2); CREATININE, serum 2.52 mg/dL (0.72-1.25); POTASSIUM 4.2 mmol/L (3.5-4.5)
[2023-08-13 11:01] LABS: PHOSPHOROUS 3.1 mg/dL (2.3-4.7); URIC ACID 3.8 mg/dL (3.5-7.2)
== END ==
LOC: COL.LAB 08:29
PROVIDERS: Registered Nurse
DX: I12.9 Hypertensive chronic kidney disease with stage 1 through stage 4 chronic kidney disease, or unspecified chronic kidney disease (principal); N18.31 Chronic kidney disease, stage 3a; E87.5 Hyperkalemia; M32.14 Glomerular disease in systemic lupus erythematosus; M1A.00X0 Idiopathic chronic gout, unspecified site, without tophus (tophi)

== ENCOUNTER → 2024-01-20 | Outpatient (CLI) | payer MEDICARE, OTHER ==
[2024-01-20 09:22] LABS: BASO % 0.4 % (0.0-2.0); EOS # 0.1 K/mm3 (0.0-0.7); EOS % 2.1 % (0.0-4.0); GRAN # 3.1 K/mm3 (1.4-6.5); GRAN % 66.1 % (42.2-75.2); HEMOGLOBIN 10.6 g/dl (13.5-18.0); LYMPH # 1.2 K/mm3 (1.2-3.4); LYMPH % 25.3 % (20.0-51.0); MEAN CELL VOLUME 99 fl (80.0-100.0); MEAN CORPUSCULAR HEMOGLOBIN 32 pg (27-31); MEAN CORPUSCULAR HGB CONC 32 g/dl (33.0-37.0); MEAN PLATELET VOLUME 10.7 fl (7.4-10.4); MONO # 0.3 K/mm3 (0.1-0.6); MONO % 5.9 % (1.7-9.3); PLATELET COUNT 148 K/mm3 (130-400); RED BLOOD COUNT 3.37 M/mm3 (4.20-5.60); REDCELL DISTRIBUTION WIDTH-CV 14.6 % (11.5-14.5)
[2024-01-20 09:32] LABS: HEMATOCRIT 33.4 % (42.0-52.0)
[2024-01-20 09:44] LABS: CALCIUM 9.7 mg/dL (8.4-10.2); CREATININE, serum 2.98 mg/dL (0.72-1.25); PHOSPHOROUS 4.2 mg/dL (2.3-4.7); POTASSIUM 4.9 mEq/L (3.5-4.5)
== END ==
LOC: COL.LAB 08:08
PROVIDERS: Registered Nurse
DX: I12.9 Hypertensive chronic kidney disease with stage 1 through stage 4 chronic kidney disease, or unspecified chronic kidney disease (principal); N18.31 Chronic kidney disease, stage 3a; D63.1 Anemia in chronic kidney disease; M32.14 Glomerular disease in systemic lupus erythematosus; E87.5 Hyperkalemia; M1A.00X0 Idiopathic chronic gout, unspecified site, without tophus (tophi)